=== PATIENT | female | born 1965 | race African-American/Black ===

== ENCOUNTER 2017-09-22 14:44 | Emergency (ER) | payer BC, SELFPAY ==
--- NOTE | 2017-09-22 15:47 | EDPHYS ---
Physician Documentation [facility] Name: Nguyen Carroll Age: 52 yrs Sex: Female : 1965 Arrival Date: 09/22/2017 Time: 14:47 Bed 24 Private MD: Osmany Melissa V ED Physician Bar Driscoll HPI: 09/22 15:36 This 52 yrs old Black Female presents to ER via Ambulatory with complaints of Skin Tag pm1 Pain And Drainage. 15:36 Description: draining. Onset: The symptoms/episode began/occurred 2 day(s) ago. pm1 Possible cause(s): unknown. Associated signs and symptoms: Pertinent positives: drainage, Pertinent negatives: fever, swelling. Modifying factors: the symptoms are alleviated by nothing, the symptoms are aggravated by nothing. Severity of symptoms: in the emergency department the symptoms have improved. The patient has not recently seen a physician, has an appointment scheduled, tomorrow. Patient skin tag on ventral aspect of her right upper arm just distal to right axilla for the the past 21 years. no issues with the skin tag until recently when it has been painful with drainage and bleeding coming from the skin tag. No fevers or redness to right arm. 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 - Social history:: Smoking status: Patient uses tobacco products, smokes one pack cigarettes per day. Patient/guardian denies using alcohol. - Ebola Screening: : Patient negative for fever greater than or equal to 101.5 degrees Fahrenheit, and additional compatible Ebola Virus Disease symptoms Patient denies exposure to infectious person Patient denies travel to an Ebola-affected area in the 21 days before illness onset. ROS: 15:36 Constitutional: Negative for fever, chills, and weight loss, Eyes: Negative for injury, pm1 pain, redness, and discharge, ENT: Negative for injury, pain, and discharge, Neck: Negative for injury, pain, and swelling, Cardiovascular: Negative for chest pain, palpitations, and edema, Respiratory: Negative for shortness of breath, cough, wheezing, and pleuritic chest pain, Abdomen/GI: Negative for abdominal pain, nausea, vomiting, diarrhea, and constipation, Back: Negative for injury and pain, MS/Extremity: Negative for injury and deformity. 15:36 Neuro: Negative for headache, weakness, numbness, tingling, and seizure. 15:36 Skin: Positive for drainage from skin tag on right arm, Negative for cellulitis. Exam: 15:36 Constitutional: This is a well developed, well nourished patient who is awake, alert, pm1 and in no acute distress. Head/Face: Normocephalic, atraumatic. Chest/axilla: Normal chest wall appearance and motion. Nontender with no deformity. No lesions are appreciated. Cardiovascular: Regular rate and rhythm with a normal S1 and S2. No gallops, murmurs, or rubs. Normal PMI, no JVD. No pulse deficits. Respiratory: Lungs have equal breath sounds bilaterally, clear to auscultation and percussion. No rales, rhonchi or wheezes noted. No increased work of breathing, no retractions or nasal flaring. Abdomen/GI: Soft, non-tender, with normal bowel sounds. No distension or tympany. No guarding or rebound. No evidence of tenderness throughout. Back: No spinal tenderness. No costovertebral tenderness. Full range of motion. 15:36 Skin: Appearance: normal except for affected area, multiple areas of folliculitis present to bilateral armpits. Multiple stubbles of hair to bilateral armpits from recent armpit shaving. pedunculated shaped skin tag with open wound at distal tip. No current drainage from skin tag. No cellulitis or abscess present on right arm at the base of peduncle . Vital Signs: 14:56 BP 128 / 85; Pulse 95; Resp 18; Temp 98.1(O); Pulse Ox 100% on R/A; Weight 95.25 kg; hj Height 5 ft. 8 in. (172.72 cm); Pain 1/10; 15:08 BP 128 / 79; Pulse 90; Resp 18; Pulse Ox 100% ; Pain 1/10; mg2 14:56 Body Mass Index 31.93 (95.25 kg, 172.72 cm) MDM: 15:08 Patient medically screened. [facility] 15:36 Data reviewed: vital signs. Data interpreted: Pulse oximetry: on room air is 100 %. pm1 Interpretation: normal. 15:36 ED course: Offered to remove the skin tag from the patient but patient refused. Skin pm1 tag is about 1 cm in length with a pedunculated attachment. Patient reports there has been some discharge from the skin tag. There is no fluctuance, erythema or appearance of cellulitis on the arm past the peduncle but I suspect the drainage came from a small abscess that was present at the middle and the end of the skin tag. Center of the skin tag has a whitish appearance. Patient recently shaved her armpits so possibly injuring the skin tag and causing infection. Patient with folliculitis present to bilateral armpits also. Therefore I will cover the patient with abx therapy to follow up with PCP. Administered Medications: No medications were administered Disposition: 09/22/17 15:47 Discharged to Home. Impression: Folliculitis bilaterally axillary, Other hypertrophic disorders of the skin - skin tag. - Condition is Stable. - Discharge Instructions: Folliculitis. - Prescriptions for Doxycycline Hyclate 100 mg Oral Tablet - take 1 tablet by ORAL route every 12 hours; 20 tablet. - Medication Reconciliation Form, Thank You Letter, Antibiotic Education form. - Follow up: Emergency Department; When: As needed; Reason: Worsening of condition. Follow up: Private Physician; When: 2 - 3 days; Reason: Recheck today's complaints, Continuance of care, Re-evaluation by your physician. - Problem is new. - Symptoms have improved. Addendum: 09/28/2017 15:13 Co-signature as Attending Physician, Bar Driscoll MD I agree with the assessment and c diamond plan of care. Signatures: Bar Driscoll MD MD cha Joaquin, Henry RN RN hj Dontae Swartz, EVERETTE HR SPECIALIST pm1 Earl García RN RN mg2 Corrections: (The following items were deleted from the chart) 09/22 15:59 15:47 09/22/2017 15:47 Discharged to Home. Impression: Folliculitis bilaterally mg2 axillary; Other hypertrophic disorders of the skin - skin tag. Condition is Stable. Forms are Medication Reconciliation Form, Thank You Letter, Antibiotic Education, Prescription Opioid Use. Follow up: Emergency Department; When: As needed; Reason: Worsening of condition. Follow up: Private Physician; When: 2 - 3 days; Reason: Recheck today's complaints, Continuance of care, Re-evaluation by your physician. Problem is new. Symptoms have improved. pm1
--- NOTE | 2017-09-22 15:47 | ER ---
Nurse's Notes [facility] Name: Nguyen Carroll Age: 52 yrs Sex: Female : 1965 Arrival Date: 09/22/2017 Time: 14:47 Bed 24 Private MD: Osmany Melissa V Diagnosis: Folliculitis bilaterally axillary;Other hypertrophic disorders of the skin-skin tag Presentation: 09/22 14:53 Presenting complaint: Patient states: underneath my R arm, i feel like a skin tag is hj getting red and have discharges; denies fever and chills;. Transition of care: patient was not received from another setting of care. Onset of symptoms was September 22, 2017. Risk Assessment: Do you want to hurt yourself or someone else? Patient reports no desire to harm self or others. Initial Sepsis Screen: Does the patient meet any 2 criteria? No. Patient's initial sepsis screen is negative. Does the patient have a suspected source of infection? No. Patient's initial sepsis screen is negative. Care prior to arrival: None. 14:53 Method Of Arrival: Ambulatory 14:53 Acuity: CALLIE 4 hj Triage Assessment: 14:55 General: Appears in no apparent distress. Behavior is calm, cooperative, appropriate hj for age. Pain: Complains of pain in right axilla. 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 - Social history:: Smoking status: Patient uses tobacco products, smokes one pack cigarettes per day. Patient/guardian denies using alcohol. - Ebola Screening: : Patient negative for fever greater than or equal to 101.5 degrees Fahrenheit, and additional compatible Ebola Virus Disease symptoms Patient denies exposure to infectious person Patient denies travel to an Ebola-affected area in the 21 days before illness onset. Screenin:56 Abuse screen: Denies threats or abuse. Denies injuries from another. Nutritional hj screening: No deficits noted. Tuberculosis screening: No symptoms or risk factors identified. Fall Risk None identified. Assessment: 15:04 General: Appears in no apparent distress. comfortable, Behavior is calm, cooperative. mg2 Pain: Complains of pain in right arm and right axilla Pain does not radiate. Pain currently is 1 out of 10 on a pain scale. Quality of pain is described as aching, Pain began gradually, 2-3 days ago. Is intermittent, Alleviated by rest, Aggravated by increased activity, repositioning. Neuro: Level of Consciousness is awake, alert, obeys commands, Oriented to person, place, time. Cardiovascular: Capillary refill < 3 seconds Patient's skin is warm and dry. Respiratory: Airway is patent Respiratory effort is even, unlabored, Respiratory pattern is regular, symmetrical. GI: No signs and/or symptoms were reported involving the gastrointestinal system. : No signs and/or symptoms were reported regarding the genitourinary system. EENT: No signs and/or symptoms were reported regarding the EENT system. Derm: Skin is intact, Skin is pink, warm \T\ dry. normal, skin tag in the right upper arm. Musculoskeletal: Circulation, motion, and sensation intact. Vital Signs: 14:56 BP 128 / 85; Pulse 95; Resp 18; Temp 98.1(O); Pulse Ox 100% on R/A; Weight 95.25 kg; hj Height 5 ft. 8 in. (172.72 cm); Pain 1/10; 15:08 BP 128 / 79; Pulse 90; Resp 18; Pulse Ox 100% ; Pain 1/10; mg2 14:56 Body Mass Index 31.93 (95.25 kg, 172.72 cm) hj ED Course: 14:47 Patient arrived in ED. sb2 14:48 Osmany Melissa MD is Private Physician. sb2 14:54 Triage completed. hj 14:56 Arm band placed on left wrist. hj 14:57 Patient has correct armband on for positive identification. Placed in gown. Bed in low hj position. Call light in reach. Side rails up X 1. 15:04 Earl García, ASHISH is Primary Nurse. mg2 15:07 Dontae Swartz NP is PHCP. pm1 15:07 Bar Driscoll MD is Attending Physician. pm1 15:58 No provider procedures requiring assistance completed. Patient did not have IV access mg2 during this emergency room visit. Administered Medications: No medications were administered Outcome: 15:47 Discharge ordered by . pm1 15:58 Discharged to home ambulatory. mg2 15:58 Condition: good 15:58 Discharge instructions given to patient, Instructed on discharge instructions, follow up and referral plans. medication usage, Demonstrated understanding of instructions, follow-up care, medications, Prescriptions given X 1. 15:59 Patient left the ED. mg2 Signatures: Homer Diego, RN RN hj Dontae Swartz NP TREATMENT TECHNICIAN pm1 Mikayla Skinner sb2 Earl García, RN RN mg2 Corrections: (The following items were deleted from the chart) 14:58 14:56 Pulse 95bpm; Resp 18bpm; Pulse Ox 100% RA; Temp 98.1F Oral; 95.25 kg; Height 5 hj ft. 8 in.; BMI: 31.9; Pain 1; hj
[2017-09-22 16:03] VITALS: TEMP 98.1; O2SAT 100
[2017-09-22 16:04] VITALS: BP 128/79
== END 2017-09-22 15:59 | disposition home or self-care (01) ==
LOC: ER 14:44
DX: L73.8 Other specified follicular disorders (principal); L91.8 Other hypertrophic disorders of the skin; Z88.2 Allergy status to sulfonamides; F17.210 Nicotine dependence, cigarettes, uncomplicated; L02.421 Furuncle of right axilla
CPT/HCPCS: 99282